=== PATIENT | male | born 1945 | race Caucasian/White ===

== ENCOUNTER 2021-04-21 06:00 | Outpatient (RCR) | payer MEDICARE, OTHER, SELFPAY | END 2021-04-27 23:59 | disposition home or self-care (01) | LOC: MR3 06:00 | PROVIDERS: Referring Provider Nurse Practitioner Family; Visit Provider Nurse Practitioner Family | DX: I63.232 Cerebral infarction due to unspecified occlusion or stenosis of left carotid arteries (principal); I69.320 Aphasia following cerebral infarction; I69.321 Dysphasia following cerebral infarction; R26.81 Unsteadiness on feet | CPT/HCPCS: 92507; 92523; 97110; 97112; 97116; 97161; 97166 ==

== ENCOUNTER 2021-04-28 06:00 | Outpatient (RCR) | payer MEDICARE, OTHER, SELFPAY | END 2021-05-27 23:59 | disposition home or self-care (01) | LOC: MR3 06:00 | PROVIDERS: Referring Provider Nurse Practitioner Family; Visit Provider Nurse Practitioner Family | DX: I63.232 Cerebral infarction due to unspecified occlusion or stenosis of left carotid arteries (principal); I69.320 Aphasia following cerebral infarction; I69.321 Dysphasia following cerebral infarction; R26.81 Unsteadiness on feet | CPT/HCPCS: 92507; 97110; 97112; 97116 ==

== ENCOUNTER 2024-01-12 07:59 | Outpatient (CLI) | payer OTHER, SELFPAY ==
--- NOTE | 2024-01-12 08:08 | MR_ITS ---
WS: [id number] MRI BRAIN WITHOUT CONTRAST HISTORY: VISUAL LOSS COMPARISON: None available. TECHNIQUE: Diffusion imaging, multiplanar T1, T2 and FLAIR imaging obtained. No evidence for acute infarct or hemorrhage. Ash-white matter differentiation is normal. Moderate atrophy is symmetric with moderate small vessel ischemic disease. Small lacunar infarcts RIG HT centrum semiovale. Mild cerebellar atrophy. Mild hippocampal atrophy. Ventricles and extra-axial spaces are prominent on the basis of central and peripheral atrophy. No inferior displacement of cerebellar tonsils. The sella turcica and pituitary gland are unremarkabl e. The optic chiasm is normally positioned. Small caliber pituitary gland. No deviation of the infund ibulum. Visualized orbits and globes are unremarkable. Dural venous sinuses and [place] of [place] demonstrate no abnormality on this unenhanced studies. Paranasal sinuses: Clear. Mastoid air cells: Normal. Calvarium and scalp: Intact. MR/MR head wo con* [id number] IMPRESSION: 1. Normal diffusion imaging. No acute infarct. 2. Moderate atrophy and small vessel disease. 3. 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 4. No abnormality involving the optic chiasm.
--- NOTE | 2024-01-12 08:25 | XR_ITS ---
WS: [id number] Chest 2 views, Clinical Data: MRI ARTIFACT Comparison: None. Findings: No nodules, masses or effusions are seen. The heart is normal. The pulmonary vascularity is not increased. No pneumonia or pneumothorax is seen. There is minimal bilateral lower lobe patchy op acity which may represent atelectasis and less likely pneumonia. The aortic arch and descending thora cic aorta show tortuosity. XR/XR chest 2V* [id number] Impression: 1. Poor inspiratory effort causing bilateral lower lobe opacity. 2. Atherosclerosis.
== END 2024-01-12 08:00 | disposition home or self-care (01) ==
LOC: RAD 07:59
PROVIDERS: Visit Provider Emergency Medicine Emergency Medical Services
DX: G31.9 Degenerative disease of nervous system, unspecified (principal); R91.8 Other nonspecific abnormal finding of lung field; I70.90 Unspecified atherosclerosis; I67.89 Other cerebrovascular disease
CPT/HCPCS: 70551; 71046

== ENCOUNTER → 2024-04-17 09:30 | Outpatient (BNVA) | payer OTHER, SELFPAY | PROVIDERS: Visit Provider Specialist | DX: G30.9 Alzheimer's disease, unspecified (principal); F02.80 Dementia in other diseases classified elsewhere, unspecified severity, without behavioral disturbance, psychotic disturbance, mood disturbance, and anxiety; R26.9 Unspecified abnormalities of gait and mobility | CPT/HCPCS: 99205 ==

== ENCOUNTER → 2024-07-17 14:29 | Outpatient (BNVA) | payer OTHER, SELFPAY | PROVIDERS: Visit Provider Specialist | DX: G30.9 Alzheimer's disease, unspecified (principal); F02.80 Dementia in other diseases classified elsewhere, unspecified severity, without behavioral disturbance, psychotic disturbance, mood disturbance, and anxiety; R26.9 Unspecified abnormalities of gait and mobility; R03.0 Elevated blood-pressure reading, without diagnosis of hypertension | CPT/HCPCS: 96116; 99215 ==

== ENCOUNTER → 2025-01-14 13:07 | Outpatient (BNVA) | payer OTHER, SELFPAY | PROVIDERS: PCP Nurse Practitioner; Visit Provider Specialist | DX: G30.9 Alzheimer's disease, unspecified (principal); F02.80 Dementia in other diseases classified elsewhere, unspecified severity, without behavioral disturbance, psychotic disturbance, mood disturbance, and anxiety; H61.20 Impacted cerumen, unspecified ear; R26.9 Unspecified abnormalities of gait and mobility; R03.0 Elevated blood-pressure reading, without diagnosis of hypertension | CPT/HCPCS: 99213 ==